=== PATIENT | female | born 1965 | race Caucasian/White ===

== ENCOUNTER 2023-12-02 19:25 | Observation (INO) ==
[2023-12-02] MEDS ORDERED: ceFAZolin VIAL 2 GM in NS 0.9% 100 ml BAG 100 ML IVPB ONE (19:39)
[2023-12-02] MEDS: Morphine 4 MG/ML VIAL (1 ml) IV ONE (19:57)
[2023-12-02] MEDS: Tetan/Diph/Pertus SYR(Tdap) 0.5 ML SYR(BOOSTRIX) use SYR contains LATEX IM ONE (20:10)
[2023-12-02] MEDS: ceFAZolin 2 GM PREMIX 2 GM/50 ML BAG IV ONE (20:15)
[2023-12-02] MEDS: HYDROmorphone 1 MG/1 ML SYRINGE IV ONE (20:29)
[2023-12-02] MEDS: Lactated Ringers 1000 ml BAG 1,000 ML IV ONE (20:29)
[2023-12-02 20:39] LABS: ABS Basophils 0.2 10^3/uL (0.0-0.1); ABS Eosinophils 0.2 10^3/uL (0.0-0.5); ABS Lymphocytes 3.6 10^3/uL (1.0-4.8); ABS Monocytes 1.4 10^3/uL (0.0-0.9); ABS Neutrophils 12.8 10^3/uL (1.5-7.6); ABS Nucleated RBC 0.01 10^3/ul; Eosinophil % 1.2 %; Hematocrit 44.3 % (35-45); Hemoglobin 14.7 g/dL (11.5-14.3); Lymphocyte % 19.7 %; Mean Corpuscular Hemoglobin 29.3 pg (27-33); Mean Corpuscular Hgb Conc 33.2 g/dL (31-36); Mean Corpuscular Volume 88.2 fL (80-97); Mean Platelet Volume 7.8 fL (7.5-11.2); Platelet Count 342 10^3/uL (150-450); Red Blood Count 5.03 10^6/uL (3.63-4.92); Red Cell Distribution Width 13.6 % (12-17); White Blood Count 18.2 10^3/uL (3.8-11.8)
[2023-12-02 21:10] LABS: Calcium 9.5 mg/dL (8.6-10.3); Creatinine, Serum 1.11 mg/dL (0.51-0.95); Potassium 4.2 mmol/L (3.5-5.0); eGFR CKD-EPI 56.9 (>60)
[2023-12-02] MEDS ORDERED: Ondansetron 4 mg VIAL 2 MG/ML 2 ml VIAL ONE (21:37)
[2023-12-02] MEDS ORDERED: Propofol 10 MG/ML 20 ML BTL ONE (21:37)
[2023-12-02] MEDS ORDERED: fentaNYL 100 mcg/2 ml 50 MCG/ML VIAL ONE ×3 (21:37→23:46)
[2023-12-02] MEDS ORDERED: Midazolam 2 mg/2 ml VIAL 1 mg/ml 2 ml VIAL (2 mg) ONE (21:37)
[2023-12-02] MEDS ORDERED: Lidocaine 2% PF 5 ML VIAL ONE (21:37)
[2023-12-02] MEDS ORDERED: Dexamethasone IV 4 MG/ML VIAL 1 ml VIAL ONE (21:37)
[2023-12-02] MEDS ORDERED: Rocuronium 50 mg VIAL 10 mg/ml 5 ml VIAL (50 mg) ONE (21:41)
[2023-12-02] MEDS ORDERED: Naloxone 0.4 mg VIAL 0.4 mg/ml 1 ml VIAL IV PRN (22:01)
[2023-12-02] MEDS ORDERED: Metoclopramide 5 MG/ML VIAL (10 mg) IV PRN (22:01)
[2023-12-02] MEDS ORDERED: Ondansetron 4 mg VIAL 2 MG/ML 2 ml VIAL IV PRN (22:01)
[2023-12-02] MEDS ORDERED: NS 0.45% 1000 ml BAG 1,000 ML IV SCH (23:00)
[2023-12-02] MEDS ORDERED: HYDROmorphone 0.5 MG/0.5 ML SYRINGE ONE (23:46)
[2023-12-02] MEDS ORDERED: Bupivacaine 0.25% SDV 30 ML ONE (23:48)
[2023-12-03] MEDS ORDERED: fentaNYL 100 mcg/2 ml 50 MCG/ML VIAL ONE ×2 (01:24→02:12)
[2023-12-03] MEDS ORDERED: Ondansetron 4 mg VIAL 2 MG/ML 2 ml VIAL IV PRN (01:54)
[2023-12-03] MEDS ORDERED: Ondansetron ODT 4 mg TAB 4 MG TAB PO PRN (01:54)
[2023-12-03] MEDS ORDERED: Magnesium Hydroxide LIQ 30 ML UDC PO PRN (01:54)
[2023-12-03] MEDS ORDERED: Lactulose 30 ml UDC PO PRN (01:54)
[2023-12-03] MEDS ORDERED: Acetaminophen IV 1 GM/100ML 1,000 MG/100 ML BAG IV ONE (02:12)
[2023-12-03] MEDS: fentaNYL 100 mcg/2 ml 50 MCG/ML VIAL IV PRN (02:13)
[2023-12-03] MEDS: Acetaminophen IV 1 GM/100ML 1,000 MG/100 ML BAG IV ONE (02:13)
[2023-12-03] MEDS: Buffered Lidocaine 1% SYRIN 1 ml INTRADERM ONE (03:39)
[2023-12-03] MEDS: Scopolamine 1 mg/72hr PATCH TRANSDERM ONE (03:40)
[2023-12-03] MEDS: Lactated Ringers 1000 ml BAG 1,000 ML IV SCH ×2 (03:40→04:03)
[2023-12-03] MEDS: ceFAZolin 1 GM ADVAN 1 GM in NS 0.9% 50 ML 50 ML IVPB SCH (04:05)
[2023-12-03] MEDS: Gentamicin ADULT 380 MG in NS 0.9% 100 ml BAG 100 ML IVPB ONE (04:22)
[2023-12-03] MEDS: Vitamin THERAPEUTIC TAB PO SCH (08:59)
[2023-12-03] MEDS: HYDROcodone/ACETAMIN 5/325 mg TAB PO PRN (09:00)
[2023-12-03] MEDS: Magnesium Hydroxide LIQ 30 ML UDC PO SCH (09:05)
[2023-12-03 18:02] VITALS: BP 136/74
== END 2023-12-03 20:40 | disposition home or self-care (01) ==
LOC: ED 19:25 → SSU 19:25 → SDS 22:12 → SSU 22:31 → OR 12-03 03:25 → SSU 12-03 03:26
PROVIDERS: ADMIT Orthopaedic Surgery Sports Medicine; ATTEND Orthopaedic Surgery Sports Medicine